=== PATIENT | male | born 1985 | race Native Hawaiian/Other Pacific Islander ===

== ENCOUNTER 2018-05-25 21:19 | Emergency (ER) | payer OTHER ==
[2018-05-25 21:32] VITALS: BP 136/85
--- NOTE | 2018-05-25 21:50 | ED Physician Documentation ---
PD HPI OPHTHO - Stated complaint Stated Complaint: EYE PX - Chief complaint Chief Complaint: Heent - History obtained from History obtained from: Patient - History of Present Illness Timing - onset: Today (He was cleaning his garage - dust went in both eyes and has FB/sandpaper sensation both eyes.) Review of Systems Constitutional: denies: Fever, Chills Eyes: reports: Photophobia, Discharge, Irritation. denies: Loss of vision, Decreased vision Ears: denies: Loss of hearing, Ear pain PD PAST MEDICAL HISTORY - Present Medications Home Medications: Ambulatory Orders Medication Instructions Recorded Confirmed Erythromycin Base [Erythromycin] 1 applic OP 5XD 7 Days oint...g. 05/25/18 - Allergies Allergies/Adverse Reactions: Allergies Allergy/AdvReac Type Severity Reaction Status Date / Time No Known Drug Allergies Allergy Verified 05/25/18 21:32 PD ED PE NORMAL - Vitals Vital signs reviewed: Yes - General General: Alert and oriented X 3, No acute distress - HEENT HEENT: PERRL, Other (Appears uncomfortable and is clenching his eyes. He is comfortable after the administration of proparacaine. I am able to see dust grossly on examination.) - Neuro Neuro: Alert and oriented X 3, Normal speech Results - Vitals Vitals: Vital Signs - 24 hr 05/25/18 21:29 Temperature 37.2 C Heart Rate 56 L Respiratory 17 Rate Blood Pressure 136/85 H O2 Saturation 99 Oxygen O2 Source Room air PD MEDICAL DECISION MAKING - ED course ED course: The eyes were numbed with proparacaine and then thoroughly irrigated both sides with saline. After irrigation he was reexplored and I could not see any more dust, but he did have some skating rink type floor seen uptake superiorly on the left and inferiorly on the right. - Sepsis Event Vital Signs: Vital Signs - 24 hr 05/25/18 21:29 Temperature 37.2 C Heart Rate 56 L Respiratory 17 Rate Blood Pressure 136/85 H O2 Saturation 99 Oxygen O2 Source Room air Departure - Departure Disposition: 01 Home, Self Care Clinical Impression: Bilateral corneal abrasions Qualifiers: Encounter type: initial encounter Qualified Code(s): S05.01XA - Injury of conjunctiva and corneal abrasion without foreign body, right eye, initial encounter; S05.02XA - Injury of conjunctiva and corneal abrasion without foreign body, left eye, initial encounter; S05.02XA - Injury of conjunctiva and corneal abrasion without foreign body, left eye, initial encounter Condition: Good Record reviewed to determine appropriate education?: Yes Instructions: ED Eye Injury Corneal Abrasion Prescriptions: Erythromycin Base [Erythromycin] 1 applic OP 5XD 7 Days oint...g. Comments: You should be 90% better by Friday, if not, give me a call [phone]. Forms: Activity restrictions
[2018-05-25] MEDS ORDERED: ERYTHROMYCIN OPHTH OINT 1 GM TUBE EACHEYE STA (22:11)
== END 2018-05-25 22:18 | disposition home or self-care (01) ==
LOC: ED 21:19
DX: S05.01XA Injury of conjunctiva and corneal abrasion without foreign body, right eye, initial encounter (principal); S05.02XA Injury of conjunctiva and corneal abrasion without foreign body, left eye, initial encounter; X58.XXXA Exposure to other specified factors, initial encounter; Y93.E9 Activity, other interior property and clothing maintenance; Y92.008 Other place in unspecified non-institutional (private) residence as the place of occurrence of the external cause
CPT/HCPCS: 99281; 99283; J3490

== ENCOUNTER 2018-07-27 21:51 | Emergency (ER) | payer OTHER ==
[2018-07-27 22:05] VITALS: BP 124/87
[2018-07-27] MEDS ORDERED: ACETAMINOPHEN 500 MG TABLET PO STA (23:21)
[2018-07-27] MEDS ORDERED: cephALEXin 250 MG CAPSULE PO STA (23:21)
--- NOTE | 2018-07-27 23:48 | ED Physician Documentation ---
PD HPI LOWER EXT INJURY - Stated complaint Stated Complaint: R FT PX - Chief complaint Chief Complaint: Ext Problem - History obtained from History obtained from: Patient - History of Present Illness PD HPI LOW EXT INJURY LOCATION: Right, Foot Where injury occurred: Home Timing - onset: How many weeks ago (1) Timing - details: Gradual onset, Still present Recently seen: Not recently seen - Additional information Additional information: patient is a 32 year old male with no significant past medical history who is presenting to the emergency department for toe pain, swelling and discharge. patient states that he cut his nail too short and now there is an infection over the area. Review of Systems Ten Systems: 10 systems reviewed and negative Constitutional: denies: Fever, Chills PD PAST MEDICAL HISTORY - Past Medical History Past Medical History: No Cardiovascular: None Respiratory: None Neuro: None Endocrine/Autoimmune: None GI: None : None HEENT: None Psych: None Musculoskeletal: None Derm: None - Past Surgical History Past Surgical History: No - Present Medications Home Medications: Ambulatory Orders Medication Instructions Recorded Confirmed Erythromycin Base [Erythromycin] 1 applic OP 5XD 7 Days oint...g. 05/25/18 Cephalexin [Keflex] 500 mg PO Q6H 7 Days capsule 07/27/18 - Allergies Allergies/Adverse Reactions: Allergies Allergy/AdvReac Type Severity Reaction Status Date / Time No Known Drug Allergies Allergy Verified 07/27/18 22:05 - Social History Does the pt smoke?: No Smoking Status: Never smoker Does the pt drink ETOH?: No Does the pt have substance abuse?: No - Immunizations Immunizations are current?: Yes - POLST Patient has POLST: No PD ED PE NORMAL - Vitals Vital signs reviewed: Yes - General General: Alert and oriented X 3 - HEENT HEENT: Atraumatic - Cardiac Cardiac: RRR - Respiratory Respiratory: No respiratory distress - Neuro Neuro: Alert and oriented X 3 Eye Opening: Spontaneous PD ED PE EXPANDED - Extremities Extremities: Left toe(s) (discharge of first toe on left foot. ) Results - Vitals Vitals: Vital Signs - 24 hr 07/27/18 22:01 Temperature 36.5 C Heart Rate 55 L Respiratory 17 Rate Blood Pressure 124/87 H O2 Saturation 100 Oxygen O2 Source Room air PD MEDICAL DECISION MAKING - ED course Complexity details: reviewed old records, reviewed results, re-evaluated patient , considered differential, d/w patient ED course: patient was seen and examined at bedside. patient was in no distress. patient' s foot was already draining. patient was started on antibiotics and was stable for discharge with outpatient follow up. - Sepsis Event Vital Signs: Vital Signs - 24 hr 07/27/18 22:01 Temperature 36.5 C Heart Rate 55 L Respiratory 17 Rate Blood Pressure 124/87 H O2 Saturation 100 Oxygen O2 Source Room air Departure - Departure Disposition: Home, Self Care Clinical Impression: Cellulitis Condition: Good Instructions: Cellulitis Dc Follow-Up: primary,care provider [Other] - Within 1 week Prescriptions: Cephalexin [Keflex] 500 mg PO Q6H 7 Days capsule Comments: Your symptoms are being caused by a skin infection. You will need to keep the area clean and dry. You should apply pressure after taking a hot shower to help get rid of some of the discharge. You are being started on antibiotics and you will need to be on them for the next week. You will need to follow with your doctor for further evaluation and care.
== END 2018-07-28 | disposition home or self-care (01) ==
LOC: ED 21:51
DX: L03.031 Cellulitis of right toe (principal)
CPT/HCPCS: 99283; A9270

== ENCOUNTER 2020-08-07 02:47 | Emergency (ER) | payer OTHER ==
[2020-08-07] MEDS ORDERED: SODIUM CHLORIDE 0.9% 1,000 ML IV STA ×2 (03:09→03:50)
[2020-08-07] MEDS ORDERED: ONDANSETRON 4 MG/2 ML VIAL IVP STA ×2 (03:09→03:49)
[2020-08-07 03:10] LABS: BASOPHILS % (AUTO) 0.3 %; EOSINOPHILS # (AUTO) 0.1 10^3/uL (0.0-0.7); EOSINOPHILS % (AUTO) 0.7 %; HGB - HEMOGLOBIN 15.4 g/dL (14.0-18.0); LYMPHOCYTES # (AUTO) 1.6 10^3/uL (1.5-3.5); LYMPHOCYTES % (AUTO) 17.7 %; MEAN CORPUSCULAR HEMOGLOBIN 30.6 pg (27.0-31.0); MEAN CORPUSCULAR HGB CONC 33.8 g/dL (32.0-36.0); MEAN CORPUSCULAR VOLUME 90.3 fL (80.0-94.0); MEAN PLATELET VOLUME 8.8 fL (7.4-11.4); MONOCYTES # (AUTO) 0.6 10^3/uL (0.0-1.0); MONOCYTES % (AUTO) 6.2 %; NEUTROPHILS # (AUTO) 6.8 10^3/uL (1.5-6.6); NEUTROPHILS % (AUTO) 74.7 %; PLT - PLATELET COUNT 228 10^3/uL (130-450); RED BLOOD COUNT 5.04 10^6/uL (4.70-6.10); RED CELL DISTRIBUTION WIDTH 12.4 % (12.0-15.0); WHITE BLOOD COUNT 9.2 x10^3/uL (4.8-10.8)
[2020-08-07 03:19] LABS: ALBUMIN 4.7 g/dL (3.2-5.5); ALBUMIN/GLOBULIN RATIO 1.4 (1.0-2.2); BILIRUBIN,TOTAL 1.3 mg/dL (0.2-1.0); CALCIUM 9.5 mg/dL (8.5-10.3); TOTAL PROTEIN 8.1 g/dL (6.7-8.2)
--- NOTE | 2020-08-07 03:23 | ED Physician Documentation ---
PD HPI NVD - Stated complaint Stated Complaint: DIZZY/VOMTING - Chief complaint Chief Complaint: Abd Pain - History obtained from History obtained from: Patient - History of Present Illness Timing - onset: How many days ago (2) Timing - duration: Days (2) Pain level now: 2 Associated symptoms: Abdominal pain. No: Fever Improved by: Other (no ameliorating factors) Worsened by: Eating Similar symptoms before: Has not had sx before Recently seen: Not recently seen - Additonal information Additional information: c/o nausea, vomiting x 2 days, progressed to the point of not tolerating any PO including liquids this evening. Also notes episodic acid/burning sensation in epigastrium that radiates up midline chest. Denies diarrhea, constipation. denies fevers. Review of Systems Constitutional: denies: Fever, Chills, Sweats Cardiac: reports: Chest pain / pressure (episodic midline burning sensation) Respiratory: reports: Reviewed and negative GI: reports: Abdominal Pain, Nausea, Vomiting. denies: Abdominal Swelling, Constipation, Diarrhea PD PAST MEDICAL HISTORY - Past Medical History Past Medical History: Yes Cardiovascular: None Respiratory: None Neuro: None Endocrine/Autoimmune: None GI: None : None HEENT: None Psych: None Musculoskeletal: None Derm: None - Past Surgical History Past Surgical History: No - Present Medications Home Medications: Ambulatory Orders Medication Instructions Recorded Confirmed Ondansetron Odt [Zofran] 4 mg TL Q6H PRN #10 tablet 08/07/20 - Allergies Allergies/Adverse Reactions: Allergies Allergy/AdvReac Type Severity Reaction Status Date / Time No Known Drug Allergies Allergy Verified 08/07/20 03:10 - Social History Does the pt smoke?: No Smoking Status: Never smoker Does the pt drink ETOH?: No Does the pt have substance abuse?: No - Immunizations Immunizations are current?: Yes - POLST Patient has POLST: No PD ED PE NORMAL - Vitals Vital signs reviewed: Yes - General General: Alert and oriented X 3, No acute distress, Well developed/nourished - HEENT HEENT: Moist mucous membranes - Cardiac Cardiac: RRR, No murmur, No gallop, No rub - Respiratory Respiratory: No respiratory distress, Clear bilaterally - Abdomen Abdomen: Normal bowel sounds, Soft, Non tender, Non distended - Back Back: No CVA TTP - Derm Derm: Normal color, Warm and dry Results - Vitals Vitals: Oxygen O2 Source Room air - Labs Labs: Laboratory Tests 08/07/20 08/07/20 08/07/20 03:00 03:00 03:40 WBC 9.2 RBC 5.04 Hgb 15.4 Hct 45.5 MCV 90.3 MCH 30.6 MCHC 33.8 RDW 12.4 Plt Count 228 MPV 8.8 Neut # (Auto) 6.8 H Lymph # (Auto) 1.6 [place] # (Auto) 0.6 Eos # (Auto) 0.1 Baso # (Auto) 0.0 Absolute Nucleated RBC 0.00 Nucleated RBC % 0.0 Sodium 137 Potassium 3.4 L Chloride 96 L Carbon Dioxide 31 Anion Gap 10.0 BUN 15 Creatinine 1.0 Estimated GFR (MDRD) 85 L Glucose 128 H Calcium 9.5 Total Bilirubin 1.3 H AST 18 ALT 18 Alkaline Phosphatase 66 Total Protein 8.1 Albumin 4.7 Globulin 3.4 Albumin/Globulin Ratio 1.4 Lipase 26 Urine Color YELLOW Urine Clarity CLEAR Urine pH >=9.0 H Ur Specific [place] 1.015 Urine Protein 30 H Urine Glucose (UA) NEGATIVE Urine Ketones NEGATIVE Urine Occult Blood NEGATIVE Urine Nitrite NEGATIVE Urine Bilirubin NEGATIVE Urine Urobilinogen 1 (NORMAL) Ur Leukocyte Esterase NEGATIVE Urine RBC None Seen Urine WBC 0-3 Ur Squamous Epith Cells RARE Squamous Urine Bacteria None Seen Urine Mucus Few Strands Ur Microscopic Review INDICATED Urine Culture Comments NOT INDICATED PD MEDICAL DECISION MAKING - ED course Complexity details: reviewed results, re-evaluated patient, considered differential, d/w patient Departure - Departure Disposition: 01 Home, Self Care Clinical Impression: Gastritis Condition: Good Instructions: ED PUD Vs Gastritis Follow-Up: [facility] [Provider Group] Prescriptions: Ondansetron Odt [Zofran] 4 mg TL Q6H PRN #10 tablet PRN Reason: Nausea / Vomiting Comments: Take either Prilosec or Nexium once per day for 2 weeks (no prescription needed for this [id number] medicine). Forms: Activity restrictions Discharge Date/Time: 08/07/20 05:29
[2020-08-07 03:45] LABS: BILIRUBIN,URINE NEGATIVE (NEGATIVE); GLUCOSE, URINE (UA) NEGATIVE (NEGATIVE); KETONES,URINE (UA) NEGATIVE (NEGATIVE); LEUKOCYTE ESTERASE, URINE NEGATIVE (NEGATIVE); NITRITE,URINE NEGATIVE (NEGATIVE); OCCULT BLOOD,URINE NEGATIVE (NEGATIVE); PH,URINE >=9.0 PH (5.0-7.5); PROTEIN,URINE 30 mg/dL (NEGATIVE); UROBILINOGEN,URINE 1 (NORMAL) E.U./dL (NORMAL)
[2020-08-07 03:46] LABS: CLARITY,URINE CLEAR (CLEAR)
[2020-08-07 03:52] LABS: BACTERIA,URINE None Seen /HPF (None Seen); MUCUS,URINE Few Strands; RBC,URINE None Seen /HPF (0-5); SQUAMOUS EPITHELIAL CELL,UR RARE Squamous (<= Few)
[2020-08-07] MEDS ORDERED: PANTOPRAZOLE 40 MG VIAL IVP STA (05:00)
[2020-08-07 05:29] VITALS: BP 136/90
== END 2020-08-07 05:29 | disposition home or self-care (01) ==
LOC: ED 02:47
DX: K29.70 Gastritis, unspecified, without bleeding (principal)
CPT/HCPCS: 36415; 80053; 81001; 81003; 83690; 85025; 87086; 96361; 96374; 96375; 96376; 99284